=== PATIENT | male | born 1965 | race Caucasian/White ===

== ENCOUNTER 2020-11-03 06:50 | Emergency (ER) | payer MEDICARE, OTHER ==
[~2020-11-03 06:50] MED LIST: BISOPROLOL FUMAR5 MG PO; BUSPAR5 MG PO; CELEBREX **OUT100 MG PO; COLACE100 MG PO; FLONASE ALLER15.8 ML; FOLIC ACID1 MG PO; GLYCOTROL CAPS1 EACH PO; KLONOPIN0.5 MG PO; LAMICTAL100 MG PO; LIDOCAINE30 G1 TOP; LIPITOR20 MG PO; LISINOPRIL-HCT1 EAC2 PO; MELOXICAM15 MG PO; NEURONTIN300 MG PO; NORVASC2.5 MG PO; PREGABALIN100 MG PO; PREGABALIN50 MG PO; PRILOSEC20 MG PO; REXULTI3 MG PO; SINEQUAN50 MG PO; SINGULAIR10 MG PO; TRAMADOL HCL50 MG PO; ULORIC40 MG PO; VASCEPA1 GM PO; VIIBRYD10 MG PO
[2020-11-03] MEDS ORDERED: ULTRAM50 MG PO (07:13)
[2020-11-03] MEDS ORDERED: PENICILLIN V P500 MG PO (07:13)
[2020-12-10] MEDS ORDERED: DICLOFENAC SODI50 MG PO (14:36)
== END 2020-11-03 07:44 | disposition home or self-care (01) ==
LOC: FER 06:50
DX: K04.7 Periapical abscess without sinus (principal)
CPT/HCPCS: 99283; Q0163

== ENCOUNTER 2021-11-11 05:22 | Day surgery (SDC) | payer MEDICARE, OTHER ==
[~2021-11-11] VITALS: Ht 163 cm; Wt 88.0 kg
[~2021-11-11 05:22] MED LIST changes: +ACETAMINOPHEN500 M1 PO; +ALLOPURINOL 30300 MG PO; +AUSTEDO9 MG PO; +DICLOFENAC SODI50 MG PO; +GINKGO BILOBA120 M1 PO; -KLONOPIN0.5 MG PO; +KLONOPIN1 MG PO; +LORATADINE10 MG PO; +MAG-OXIDE 400M400 MG PO; +MELATONIN5 M2 PO; +MOMETASONE FURO17 GM; +PENICILLIN V P500 MG PO; +ULTRAM50 MG PO; +VITAMIN B-121000 MC1 PO
--- NOTE | 2021-11-11 13:47 | NUR ---
PT HAD A LTSR THIS DATE. PT. REQUESTED TO GO A [facility] FACILITY FOR ASSISTANCE. PT REQUESTED [facility]. FAXED CLINICAL INFORMATION TO [facility].
[2021-11-12 06:52] LABS: BASOPHIL 0.1 % (0-2); EOSINOPHIL 0.1 % (0-5); HCT 39.1 % (42.0-52.0); LYMPHOCYTE 6.3 % (15-48); MCH 31.8 pg (25.0-31.0); MCHC 33.2 g/dL (32.0-36.0); MCV 95.6 fL (78.0-100.0); MONOCYTE 9.3 % (0-12); MPV 11.4 fL (6.0-9.5); NEUTROPHIL 83.5 % (41-80); NRBC 0; PLT 211 K/uL (150-400); RBC 4.09 M/uL (4.70-6.00); RDW 13.9 % (11.5-14.0); WBC 13.6 K/uL (4.0-10.5)
[2021-11-12 07:11] LABS: BUN/CREAT RATIO (CALC) 19.5 RATIO; CREATININE 1.18 mg/dL (0.67-1.17); POTASSIUM 4.4 mmol/L (3.5-5.1)
[2021-11-12] MEDS ORDERED: ASPIRIN81 MG PO (09:21)
[2021-11-12] MEDS ORDERED: FEOSOL325 MG PO (09:21)
--- NOTE | 2021-11-12 10:34 | NUR ---
PT HAS NOW CHANGED HIS MIND AND WANTS [facility]. FAXED CLINICAL INFO TO [facility] WITH [facility]. JOSH SIMON, [employer], WILL PUT INSTRUCTIONS FOR THE SHOULDER IN PT DC PACKET. ADVISED [facility] THERE WOULD BE INSTURCTIONS IN HIS PACKET. PT. SIGNED CHOICE FORM AND COPY GIVEN.
== END 2021-11-12 11:30 | disposition home or self-care (01) ==
LOC: FAS 05:22 → FMS 08:09 → FAS 11-12 11:30
PROVIDERS: Orthopaedic Surgery
DX: M19.012 Primary osteoarthritis, left shoulder (principal); F20.9 Schizophrenia, unspecified; I10 Essential (primary) hypertension; E78.5 Hyperlipidemia, unspecified; Z88.8 Allergy status to other drugs, medicaments and biological substances; Z79.899 Other long term (current) drug therapy
CPT/HCPCS: 36415; 73020; 80048; 85025; 86850; 86900; 86901; 94010; 94760; 97162; 97166; 97530-GP; 97535; C1713; C1776; J0171; J0697; J1100; J2250; J2270; J2405; J2704; J2795; J3010; J7120

== ENCOUNTER → 2022-04-15 | Day surgery (SDC) | payer MEDICARE, OTHER ==
[~2022-04-15] VITALS: Ht 163 cm; Wt 88.0 kg
[~2022-04-15] MED LIST changes: +AMOXICILLIN500 MG PO; +ASPIRIN81 MG PO; +COMPANION TABL0.4 MG PO; +FEOSOL325 MG PO; -FOLIC ACID1 MG PO; +PRAVACHOL20 MG PO
== END | disposition home or self-care (01) ==
LOC: FAS 06:55
DX: Z12.11 Encounter for screening for malignant neoplasm of colon (principal); D12.0 Benign neoplasm of cecum; D12.2 Benign neoplasm of ascending colon; K62.1 Rectal polyp; K57.30 Diverticulosis of large intestine without perforation or abscess without bleeding; I10 Essential (primary) hypertension; E78.00 Pure hypercholesterolemia, unspecified; K21.9 Gastro-esophageal reflux disease without esophagitis; Z86.010 Personal history of colon polyps; Z88.8 Allergy status to other drugs, medicaments and biological substances; Z79.899 Other long term (current) drug therapy
CPT/HCPCS: J2250; J2704; J7120